=== PATIENT | male | born 1965 | race Caucasian/White ===

== ENCOUNTER 2023-01-08 16:42 | Emergency (ER) | payer SELFPAY ==
[2023-01-08 16:46] VITALS: BP 148/107; PULSE 110; TEMP 36.8; O2SAT 98
[2023-01-08] MEDS: TETRACAINE HCL 0.5% OPHTH SOLN 4 ML BTL 1 DROP EACH EYE (16:59)
[2023-01-08] MEDS: DACRIOSE EYE IRRIGATION 118 ML BOTTLE 20 ML LEFT EYE (17:00)
[2023-01-08] MEDS: FLUORESCEIN SOD 1 MG/STRIP EACH EYE (17:00)
--- NOTE | 2023-01-08 17:12 | ED.EYEPROB ---
HPI - Eye Problem General Chief complaint: Eye Problems Stated complaint: eye irritation Time Seen by Provider: 01/08/23 16:47 Source: patient Mode of arrival: ambulatory Limitations: no limitations History of Present Illness HPI Narrative: this is a 57-year-old gentleman that presents with left eye irritation with a foreign body sensation after he feels like foreign object entered his left eye currently there is no visual disturbance does have some blurry vision does not wear contacts. chief complaint: eye pain and eye redness Onset (ago): day(s) Duration: constant Location: left eye Eye Symptoms: redness and foreign body sensation Related Data Allergies Allergy/AdvReac Type Severity Reaction Status Date / Time No Known Allergies Allergy Verified 01/08/23 16:51 Review of Systems Review of Systems: All systems reviewed & are unremarkable except as noted in HPI and below PMFSH Past Medical History Medical History Patient denies medical problems Exam Const: General: healthy appearing Nutritional Appearance: well nourished Orientation/consciousness: patient oriented x3 HENMT: Head: normal to inspection Eyes: Conjunctivae: conjunctival abnormality Pupils: Equal, round and reactive pupils present EOM: EOMs intact bilaterally Other: conjunctival injection foreign body sensation fluorescein stain shows a small corneal abrasion to the 1 o'clock position of the left eye. Neck: Neck: normal visual inspection Chest: Chest palpation & inspection: normal inspection of the chest Resp: Effort & Inspection: normal respiratory effort Auscultation: clear to auscultation bilaterally Cardio: Rate: regular rate Rhythm: regular rhythm Skin: General skin exam: normal color Rashes: no rashes Neuro: General: patient oriented x3 Psych: Mental Status: mental status grossly normal Affect: normal affect Course Course Emergency Course: Eye was irrigated tetracaine was used to numb the left eye I washed was used with dextrose there was a small corneal abrasion visualized at the 1 o'clock position of the left eye antibiotic eye drop was administered. Vital Signs Vital signs: Vital Signs Temperature 36.8 C 01/08/23 16:46 Pulse Rate 110 H 01/08/23 16:46 Blood Pressure 148/107 H 01/08/23 16:46 Pulse Oximetry 98 01/08/23 16:46 Oxygen Delivery Room Air 01/08/23 16:46 Temperature 36.8 C 01/08/23 16:46 Pulse Rate 110 H 01/08/23 16:46 Blood Pressure 148/107 H 01/08/23 16:46 Pulse Oximetry 98 01/08/23 16:46 Oxygen Delivery Room Air 01/08/23 16:46 Procedures FB Removal Eye Foreign Body #1: Foreign Body Removal Date: 01/08/23 Foreign Body Removal Time: 17:17 Time Out performed: Yes Location: eye (L) Topical anesthetic used: tetracaine Foreign body: other Evidence of corneal penetration: No Technique: irrigation Procedure performed under: direct visualization with magnification Post-procedure medication: ophthalmic antibiotic Foreign Body Removal Narrative: Corneal abrasion was visualized at the 1 o'clock position of the left cornea Critical Care Time Critical Care Time Critical Care Time: No Discharge Plan Discharge Clinical Impression: Corneal abrasion Qualifiers: Encounter type: initial encounter Laterality: left Qualified Code(s): S05.02XA - Injury of conjunctiva and corneal abrasion without foreign body, left eye, initial encounter Patient Disposition: Home, Self-Care Condition: Stable Instructions: Antibiotic Form, Corneal Abrasion (ED) Additional Instructions: advised to use medicine as prescribed and follow-up with Primary/Ophthalmology within 1 week for further evaluation and treatment. Prescriptions: New neomycin-polymyxin B-dexameth [Maxitrol] 3.5 mg/g-10,000 unit/g-0.1 % ointment 1 applic LEFT EYE Q6H 7 Days Qty:
[2023-01-08] MEDS: NEOMYCIN/POLYMYXIN/HYDROCORT 7.5 ML EYE DROPS (*BKC) 2 DROP LEFT EYE (17:22)
[2023-01-08 17:32] VITALS: BP 145/78; PULSE 87; RESP 20; O2SAT 95
== END 2023-01-08 17:35 | disposition home or self-care (01) ==
PROVIDERS: Emergency Provider Emergency Medicine; PCP Family Medicine
DX: S05.02XA Injury of conjunctiva and corneal abrasion without foreign body, left eye, initial encounter (principal); W45.8XXA Other foreign body or object entering through skin, initial encounter
CPT/HCPCS: 99283; A9270